=== PATIENT | female | born 1935 | race Hispanic/Latino ===

== ENCOUNTER 2018-06-14 18:38 | Emergency (ER) | payer MEDICARE, OTHER ==
[2018-06-14 18:40] VITALS: BMI 26.1
[2018-06-14 19:28] VITALS: RESP 18; O2SAT 96
--- NOTE | 2018-06-14 20:24 | ED PDOC ---
Arrival/HPI - General Chief Complaint: High Blood Pressure Time Seen by Provider: 06/14/18 19:35 Historian: Patient, Family - History of Present Illness Narrative History of Present Illness (Text): 06/14/18 20:23 83 year old female, with past medical history of hypertension, hypothyroidism, and anemia, presents to emergency department from the oncology infusion center upstairs for further observation. Daughter states that patient's blood pressure went up after being given two units of prbc. Patient was given lasiks and blood pressure improved. Patient reports taking metoprolol this morning and is due to take amlodipine tonight. Patient denies any headache, dizziness, chest pain, shortness of breath, palpitations, or leg swelling. GI doctor: Oncologist: PMD: Time/Duration: Prior to Arrival Symptom Onset: Gradual Symptom Course: Improving Activities at Onset: Light Context: Other (oncology center) Past Medical History - Provider Review Nursing Documentation Reviewed: Yes - Infectious Disease Hx of Infectious Diseases: None - Cardiac Hx Hypertension: Yes Hx Pacemaker: No - Neurological Hx Paralysis: No - HEENT Hx HEENT Disorder: Yes (+ eyeglasses) - Endocrine/Metabolic Hx Hypothyroidism: Yes - Hematological/Oncological Hx Anemia: Yes Hx Blood Transfusions: Yes Hx Blood Transfusion Reaction: No - Musculoskeletal/Rheumatological Hx Musculoskeletal Disorders: Yes - Psychiatric Hx Substance Use: No - Anesthesia Hx Anesthesia Reactions: Yes (CONFUSION) Hx Malignant Hyperthermia: No - Suicidal Assessment Feels Threatened In Home Enviroment: No Family/Social History - Physician Review Nursing Documentation Reviewed: Yes Family/Social History: No Known Family HX Smoking Status: Never Smoked Hx Alcohol Use: No Hx Substance Use: No Allergies/Home Meds Allergies/Adverse Reactions: Allergies No Known Allergies Allergy (Verified 09/18/11 13:13) Home Medications: Home Meds Medication Instructions Recorded Confirmed Amlodipine/Valsartan [Exforge 1 each PO DAILY 06/10/18 06/14/18 5-320 mg Tablet] Cholecalciferol (Vitamin D3) 2,000 unit PO DAILY 06/10/18 06/14/18 [Vitamin D3] Epoetin Irwin [Procrit] 2,000 unit IJ .[id number] 06/10/18 06/14/18 Levothyroxine [Synthroid] 100 mcg PO DAILY 06/10/18 06/14/18 Metoprolol Succinate XL [Toprol XL] 50 mg PO DAILY 06/10/18 06/14/18 Multivit-Min/FA/Lycopen/Lutein 1 each PO DAILY 06/10/18 06/14/18 [Centrum Silver Tablet] Simvastatin [Zocor] 10 mg PO HS 06/10/18 06/14/18 Vit A/Vit C/Vit E/Zinc/Copper 1 each PO BID 06/10/18 06/14/18 [Preservision Areds Softgel] Solifenacin Succinate [Vesicare] 10 mg PO DAILY 06/13/18 06/14/18 Review of Systems - Physician Review All systems were reviewed & negative as marked: Yes - Review of Systems Constitutional: absent: Fevers Respiratory: absent: SOB Cardiovascular: Other (increase in BP, but improved currently ). absent: Chest Pain, Palpitations Musculoskeletal: absent: Back Pain, Neck Pain, Joint Swelling Skin: absent: Rash Neurological: absent: Headache, Dizziness Physical Exam Vital Signs Reviewed: Yes Vital Signs Pulse Resp BP Pulse Ox 06/14/18 19:27 84 18 159/68 H 96 Temperature: Afebrile Blood Pressure: Normal Pulse: Regular Respiratory Rate: Normal Appearance: Positive for: Well-Appearing, Non-Toxic, Comfortable Pain Distress: None Mental Status: Positive for: Alert and Oriented X 3 - Systems Exam Head: Present: Atraumatic, Normocephalic Pupils: Present: PERRL Extroacular Muscles: Present: EOMI Conjunctiva: Present: Normal Mouth: Present: Moist Mucous Membranes Neck: Present: Normal Range of Motion Respiratory/Chest: Present: Clear to Auscultation, Good Air Exchange. No: Respiratory Distress, Accessory Muscle Use Cardiovascular: Present: Murmurs (loud systolic murmur) Abdomen: No: Tenderness, Distention, Peritoneal Signs Back: Present: Normal Inspection Upper Extremity: Present: Normal Inspection. No: Cyanosis, Edema Lower Extremity: Present: Normal Inspection. No: Edema Neurological: Present: GCS=15, CN II-XII Intact, Speech Normal Skin: Present: Warm, Dry, Normal Color. No: Rashes Psychiatric: Present: Alert, Oriented x 3, Normal Insight, Normal Concentration Medical Decision Making ED Course and Treatment: 06/14/18 20:36 Impression: 83 year old female presents to emergency department for further observation after blood pressure increase when given two units of prbc in oncology infusion center. Plan: -- Labs -- Reassess and disposition Prior Visits: Notes and results from previous visits were reviewed. Progress Notes: 06/14/18 20:37 EKG: Ordered, reviewed, and independently interpreted the EKG. Rate : 89 BPM Rhythm : NSR Interpretation : 1st degree av block CXR : NAD. Labs reviewed : trop (-), bnp [id number]. On reevaluation, patient reports improvement of symptoms, denies any headache, dizziness, facial flushing, CP, SOB, dyspnea, palpitations. Patient states that she feels well and wants to go home. On exam, patient remains awake alert and oriented 3 in no acute distress, she is smiling, cheerful and in good spirits. Results d/w the patient. She feels comfortable going home. VS : BP 148/80 P 82 R 18 O2sat 96%RA. Advised to follow up with primary care physician and her hem/onc doctor in 1-2 days without fail. Return to the emergency room at any time for any new or worsening symptoms. Patient states she fully agrees with and understands discharge instructions. States that she agrees with the plan and disposition. Verbalized and repeated discharge instructions and plan. I have given the patient opportunity to ask any additional questions. - PA / REVENUE FIELD AUDITOR / Resident Statement MD/DO has reviewed & agrees with the documentation as recorded. - Scribe Statement The provider has reviewed the documentation as recorded by the Scribe Lauren Nova All medical record entries made by the Scribe were at my direction and personally dictated by me. I have reviewed the chart and agree that the record accurately reflects my personal performance of the history, physical exam, medical decision making, and the department course for this patient. I have also personally directed, reviewed, and agree with the discharge instructions and disposition. Disposition/Present on Arrival - Present on Arrival Any Indicators Present on Arrival: No History of DVT/PE: No History of Uncontrolled Diabetes: No Urinary Catheter: No History of Decub. Ulcer: No History Surgical Site Infection Following: None - Disposition Have Diagnosis and Disposition been Completed?: Yes Diagnosis: Hypertension Disposition: HOME/ ROUTINE Disposition Time: 22:00 Patient Plan: Discharge Patient Problems: Current Active Problems Problem Status Onset Hypertension Acute Condition: STABLE Discharge Instructions (ExitCare): Blood Transfusion , High Blood Pressure (DC) Additional Instructions: Thank you for letting us take care of you today. You were treated for HTN, s/p blood transfusion. The emergency medical care you received today was directed at your acute symptoms. Return to the Emergency Department if your symptoms worsen, do not improve, or if you have any other problems. Please contact your primary care and senior production manager in 2 days for re-evaluation and follow up. Bring any paperwork you were given at discharge with you along with any medications you are taking to your follow up visit. Our treatment cannot replace ongoing medical care by a primary care provider (PCP) outside of the emergency department. Thank you for allowing the [facility] team to be part of your care today. Referrals: Kanu Lockett MD [Primary Care Provider] - Follow up with primary Forms: [employer] (Albanian)
[2018-06-14 20:43] LABS: HEMOGLOBIN 11.3 g/dL (12.0-16.0); LYMPH # 0.7 (1.2-3.4); LYMPH % 10.3 % (22.0-35.0); MEAN CELL VOLUME 88.1 fl (80.0-105.0); MEAN CORPUSCULAR HEMOGLOBIN 28.7 pg (25.0-35.0); MEAN CORPUSCULAR HGB CONC 32.6 g/dl (31.0-37.0); MEAN PLATELET VOLUME 9.6 fl (7.0-11.0); MONO # 0.1 (0.1-0.6); MONO % 1.2 % (1.0-6.0); RBC 3.94 10^6/uL (3.5-6.1); RED CELL DISTRIBUTION WIDTH 14.8 % (11.5-14.5); WHITE BLOOD COUNT 6.5 10^3/uL (4.5-11.0)
[2018-06-14 20:46] LABS: ALB/GLOB RATIO 1.2 (1.1-1.8); ALBUMIN 4.3 g/dL (3.0-4.8); AST/SGOT 23 U/L (14-36); BLOOD UREA NITROGEN 35 mg/dL (7-21); CALCIUM 9.6 mg/dL (8.4-10.5); GFR NON-AFRICAN AMERICAN 43
[2018-06-14 20:52] LABS: ALT/SGPT < 6 U/L (7-56)
[2018-06-14 20:58] LABS: B-TYPE NATRIURETIC PEPTIDE 4380 pg/mL (0-450); TROPONIN I < 0.01 ng/mL
[2018-06-15 03:19] VITALS: BP 146/78; PULSE 78
--- NOTE | 2018-06-15 09:03 | CARD ---
APPROVED REPORT Date of service: 06/14/2018 EKG Measurement Heart [id number] <Conclusion> Sinus rhythm with 1st degree AV block Otherwise normal ECG
--- NOTE | 2018-06-15 11:55 | RAD ---
Date of service: 06/14/2018 HISTORY: Hypertension COMPARISON: No prior. FINDINGS: LUNGS: No active pulmonary disease. PLEURA: No significant pleural effusion identified, no pneumothorax apparent. CARDIOVASCULAR: Atherosclerotic calcifications identified primarily aortic arch. No radiographic findings to suggest acute or significant cardiovascular disease. Incidental finding(s): Calcification mitral valve annulus. OSSEOUS STRUCTURES: No significant abnormalities. VISUALIZED UPPER ABDOMEN: Normal. OTHER FINDINGS: None. IMPRESSION: No active disease.
== END 2018-06-14 22:20 | disposition home or self-care (01) ==
LOC: ED 18:38
DX: I10 Essential (primary) hypertension (principal); D64.9 Anemia, unspecified

== ENCOUNTER 2018-06-28 10:54 | Day surgery (SDC) | payer MEDICARE, OTHER ==
[2018-06-28] MEDS ORDERED: Midazolam 2 MG/2 ML VIAL ONE (13:12)
[2018-06-28] MEDS ORDERED: Propofol 10 mg/ml Inj (20 ML) ONE (13:47)
[2018-06-28] MEDS ORDERED: Simethicone 40 mg/0.6 ml Liquid (30 ml) ONE (13:58)
[2018-06-28 14:20] LABS: BASO # 0.03 K/mm3 (0.0-2.0); BASO % 0.6 % (0.0-3.0); EOS % 0.4 % (1.5-5.0); HEMOGLOBIN 11.5 g/dL (12.0-16.0); LYMPH # 1.2 (1.2-3.4); LYMPH % 23.4 % (22.0-35.0); MEAN CELL VOLUME 92.5 fl (80.0-105.0); MEAN CORPUSCULAR HEMOGLOBIN 28.6 pg (25.0-35.0); MEAN CORPUSCULAR HGB CONC 30.9 g/dl (31.0-37.0); MEAN PLATELET VOLUME 9.9 fl (7.0-11.0); MONO # 0.3 (0.1-0.6); MONO % 6.4 % (1.0-6.0); RBC 4.02 10^6/uL (3.5-6.1); RED CELL DISTRIBUTION WIDTH 16.5 % (11.5-14.5); WHITE BLOOD COUNT 5.2 10^3/uL (4.5-11.0)
[2018-06-28 14:25] LABS: INR 1.21; PARTIAL THROMBOPLASTIN TIME 36.5 Seconds (26.9-38.3); PROTHROMBIN TIME 13.7 SECONDS (9.4-12.5)
[2018-06-28 14:26] LABS: ALBUMIN 4.1 g/dL (3.0-4.8); CALCIUM 9.9 mg/dL (8.4-10.5)
[2018-06-28 14:27] LABS: ALB/GLOB RATIO 1.2 (1.1-1.8)
[2018-06-28] MEDS ORDERED: Sodium Chloride 0.9% 1,000 ML IV SCH (14:45)
[2018-06-28 16:37] VITALS: BP 138/60; PULSE 73; RESP 16; TEMP 97.9; O2SAT 99
== END 2018-06-28 14:31 | disposition home or self-care (01) ==
LOC: ENDO 10:54
PROVIDERS: ATTEND Internal Medicine Gastroenterology
DX: K62.5 Hemorrhage of anus and rectum (principal); D50.9 Iron deficiency anemia, unspecified; K57.30 Diverticulosis of large intestine without perforation or abscess without bleeding; K64.8 Other hemorrhoids
CPT/HCPCS: 36415; 45382; 80053; 83735; 84100; 85025; 85610; 85730; 86850; 86900; J2001; J2704; J7030